=== PATIENT | male | born 1975 | race African-American/Black ===

== ENCOUNTER 2018-11-29 11:42 | Emergency (ER) | payer OTHER, MEDICAID ==
[~2018-11-29] VITALS: Ht 177.8 cm; Wt 85.0 kg
[~2018-11-29 11:42] MED LIST: NO MEDICATION
[2018-11-29 12:50] LABS: BASOPHILS % 0.6 % (0.0-2.0); EOSINOPHILS % 1.2 % (0.0-5.0); HEMATOCRIT. 44.1 % (42.0-52.0); LYMPHOCYTES % 18.3 % (20.0-50.0); MEAN CORPUSCULAR HEMOGLOBIN 30.9 pg (28.0-32.0); MEAN PLATELET VOLUME 6.4 fl (7.4-10.4); MONOCYTES % 10.3 % (2.0-8.0); NEUTROPHILS % 69.6 % (40.0-76.0); PLATELET 125 x1000/uL (130-400); RED BLOOD CELL COUNT 4.84 mill/uL (4.7-6.1); RED CELL DISTRIBUTION WIDTH 13.2 % (11.6-14.6)
[2018-11-29 12:52] LABS: CHLORIDE 106 mEq/L (98-107)
[2018-11-29] MEDS ORDERED: SODIUM CHLORIDE 0.9% 1,000 ML IV ONE (12:52)
[2018-11-29] MEDS ORDERED: ONDANSETRON HCL 4MG/2ML INJ IV ONE (13:00)
[2018-11-29 14:39] VITALS: BP 120/85
== END 2018-11-29 14:42 | disposition home or self-care (01) ==
LOC: ER 11:49
DX: R55 Syncope and collapse (principal); F12.10 Cannabis abuse, uncomplicated; F17.200 Nicotine dependence, unspecified, uncomplicated
CPT/HCPCS: 36415; 71045; 80053; 83880; 84484; 85025; 93005; 96374; 99284; J2405; J7030

== ENCOUNTER 2021-08-20 13:47 | Emergency (ER) | payer MEDICAID, OTHER ==
[~2021-08-20] VITALS: Ht 180.3 cm; Wt 82.0 kg
[2021-08-20] MEDS ORDERED: SODIUM CHLORIDE 0.9% 1,000 ML IV ONE (14:30)
[2021-08-20 14:57] LABS: HEMATOCRIT. 42.1 % (42.0-52.0); HEMOGLOBIN. 14.2 g/dL (14.0-18.0); MEAN CORPUSCULAR HEMOGLOBIN 30.9 pg (28.0-32.0); MEAN CORPUSCULAR VOLUME 91.9 fL (80.0-94.0); MEAN PLATELET VOLUME 6.9 fl (7.4-10.4); PLATELET 138 x1000/uL (130-400); RED BLOOD CELL COUNT 4.58 mill/uL (4.7-6.1); RED CELL DISTRIBUTION WIDTH 13.2 % (11.6-14.6)
[2021-08-20 15:06] LABS: CHLORIDE 107 mEq/L (98-107)
[2021-08-20 15:34] LABS: PLATELET ESTIMATE NORMAL
[2021-08-20 16:41] VITALS: BP 122/71
== END 2021-08-20 16:30 | disposition home or self-care (01) ==
LOC: ER 13:47
DX: R55 Syncope and collapse (principal); R74.01 Elevation of levels of liver transaminase levels; F17.210 Nicotine dependence, cigarettes, uncomplicated; F12.90 Cannabis use, unspecified, uncomplicated; Z71.6 Tobacco abuse counseling
CPT/HCPCS: 36415; 71045; 80053; 83880; 84484; 85025; 93005; 99285; 99406; J7030

== ENCOUNTER 2023-05-20 10:46 | Emergency (ER) | payer MEDICAID, OTHER ==
[~2023-05-20] VITALS: Ht 177.8 cm; Wt 91.0 kg
[2023-05-20 10:52] VITALS: BP 131/67; PULSE 62; RESP 16; TEMP 98.6; O2SAT 100
== END 2023-05-20 11:13 | disposition home or self-care (01) ==
LOC: ER 10:46
DX: S61.419D Laceration without foreign body of unspecified hand, subsequent encounter (principal); X58.XXXD Exposure to other specified factors, subsequent encounter
CPT/HCPCS: 99283

== ENCOUNTER 2023-06-04 08:15 | Emergency (ER) | payer OTHER ==
[~2023-06-04] VITALS: Ht 177.8 cm; Wt 80.0 kg
[2023-06-04 08:18] VITALS: BP 124/77; TEMP 98.8; O2SAT 100
[2023-06-04 08:22] VITALS: PULSE 72; RESP 20
== END 2023-06-04 10:48 | disposition home or self-care (01) ==
LOC: ER 08:15
DX: Z48.02 Encounter for removal of sutures (principal)
CPT/HCPCS: 99281

== ENCOUNTER 2025-04-28 15:24 | Emergency (ER) | payer OTHER ==
[~2025-04-28] VITALS: Ht 172.7 cm; Wt 83.0 kg
[2025-04-28 15:40] VITALS: O2SAT 98
[2025-04-28] MEDS: LIDOCAINE HCL 1% 20ML VIAL INFIL ONE (16:45)
[2025-04-28] MEDS ORDERED: CEPH500C2 MT (19:58)
[2025-04-28] MEDS ORDERED: SULF1TAB48 MT (19:58)
[2025-04-28] MEDS ORDERED: IBUP-2029 MT (19:58)
[2025-04-28 20:10] VITALS: BP 159/86; PULSE 84; RESP 17; TEMP 36.8; O2SAT 98
== END 2025-04-28 20:20 | disposition home or self-care (01) ==
LOC: ER 15:24
DX: L02.413 Cutaneous abscess of right upper limb (principal)
CPT/HCPCS: 87070; 87186; 87205; 87077; 10060; 99283; J2003; Z7610 ×3